=== PATIENT | male | born 1990 | race Caucasian/White ===

== ENCOUNTER 2024-07-23 11:27 | Inpatient (IN) | payer OTHER ==
[2024-07-23 12:02] VITALS: BMI 21.7
[2024-07-23] MEDS ORDERED: NALOXONE (NARCAN) HCL 4 MG/0.1 ML SPRAY NS PRN (12:02)
[2024-07-23] MEDS ORDERED: MAGNESIUM HYDROX 2400MG/30ML ORAL SUSPENSION 30 ML CUP PO PRN (12:02)
[2024-07-23] MEDS ORDERED: ACETAMINOPHEN 325 MG TABLET (FP) PO PRN (12:02)
[2024-07-23] MEDS ORDERED: ONDANSETRON *ODT* 4 MG TABLET SL PRN (12:02)
[2024-07-23] MEDS ORDERED: METHOCARBAMOL 500 MG TABLET PO PRN (12:02)
[2024-07-23] MEDS ORDERED: BENZONATATE 200 MG CAPSULE PO PRN (12:02)
[2024-07-23] MEDS ORDERED: IBUPROFEN 400 MG TABLET (FP) PO PRN (12:02)
[2024-07-23] MEDS ORDERED: POLYETHYLENE GLYCOL (HEALTHYLAX) 3350 17 GM PACKET PO PRN (12:02)
[2024-07-23] MEDS ORDERED: MAG HYDROX/AL HYDROX/SIMETH 30 ML UNIT-DOSE CUP PO PRN (12:02)
[2024-07-23] MEDS ORDERED: DICYCLOMINE HCL 10 MG CAPSULE PO PRN (12:02)
[2024-07-23] MEDS ORDERED: guaiFENesin 600 MG TABLET.ER (FP) PO PRN (12:02)
[2024-07-23] MEDS ORDERED: BENZOCAINE/MENTHOL (CHLORASEPTIC ) LOZENGE MM PRN (12:02)
[2024-07-23] MEDS ORDERED: LOPERAMIDE HCL 2 MG CAPSULE PO PRN (12:02)
[2024-07-23] MEDS ORDERED: BISMUTH SUBSALICYLATE 262 MG/15 ML BTL PO PRN (12:02)
[2024-07-23] MEDS ORDERED: hydrOXYzine PAMOATE 25 MG CAPSULE (FP) PO PRN (12:02)
[2024-07-23] MEDS ORDERED: methaDONE HCL 10 MG TABLET (FOR DETOX USE ONLY) ONE (12:38)
[2024-07-23] MEDS ORDERED: PRENATAL VITAMINS W/ FOLIC ACID TABLET (FP) PO ONE (12:39)
[2024-07-23] MEDS: methaDONE HCL 10 MG TABLET PO ONE (12:42)
[2024-07-23] MEDS: PRENATAL VITAMINS W/ FOLIC ACID TABLET (FP) PO SCH (12:42)
[2024-07-23] MEDS: cloNIDine HCL 0.1 MG TABLET PO SCH (13:11)
[2024-07-23] MEDS: MELATONIN 5 MG TABLETS PO SCH (22:06)
[2024-07-23] MEDS: THIAMINE 100 MG TABLET PO SCH (22:06)
[2024-07-23] MEDS: methaDONE HCL 10 MG TABLET PO PRN (22:08)
[2024-07-24] MEDS: IBUPROFEN 600 MG TABLET (FP) PO PRN (05:25)
[2024-07-24] MEDS: methaDONE 40 MG, methaDONE 10 MG PO ONE (09:25)
[2024-07-24 11:25] LABS: HEMATOCRIT 38.9 % (40.1-51.0); HEMOGLOBIN 12.5 g/dL (13.7-17.5); MCHC 32.1 g/dl (32.3-36.5); MEAN CELL VOLUME 93.3 fl (79.0-92.2); MEAN PLT VOLUME 10.3 fl (9.4-12.4); PLATELET COUNT 385 x10^3/uL (163-337); RDW 12.6 % (12.0-15.6)
[2024-07-24 11:39] LABS: POTASSIUM 3.9 mmol/L (3.5-5.1)
[2024-07-24 11:43] LABS: CALCIUM 9.2 mg/dL (8.5-10.1)
[2024-07-24 11:44] LABS: BLOOD UREA NITROGEN 10.7 mg/dL (7-18)
[2024-07-24 11:47] LABS: CREATININE 0.6 mg/dL (0.55-1.3)
[2024-07-24 11:48] LABS: BILIRUBIN,TOTAL 0.5 mg/dL (0.2-1); TOT PROT 7.7 g/dl (6.4-8.2)
[2024-07-24 13:12] VITALS: RESP 18
[2024-07-24 17:10] VITALS: BP 110/73; PULSE 70; TEMP 97.9
[2024-07-25] MEDS ORDERED: cloNIDine HCL 0.1 MG TABLET PO PRN
[2024-07-25] MEDS ORDERED: methaDONE 40 MG, methaDONE 20 MG PO ONE (10:00)
[2024-07-26] MEDS ORDERED: methaDONE 40 MG, methaDONE 30 MG PO ONE (10:00)
[2024-07-27] MEDS ORDERED: methaDONE HCL 40 MG DISPERSABLE TABLET PO ONE (10:00)
[2024-07-28] MEDS ORDERED: methaDONE 80 MG, methaDONE 10 MG PO ONE (10:00)
== END 2024-07-24 19:52 | disposition left against medical advice (07) | DRG 770 ==
LOC: YASAS 11:27 → Y6N 12:32
PROVIDERS: ADMIT Allergy & Immunology; ATTEND Allergy & Immunology
PROC: HZ2ZZZZ Detoxification Services for Substance Abuse Treatment (ICD-10-PCS; principal; 2024-07-23)
DX: F11.23 Opioid dependence with withdrawal (principal); F17.210 Nicotine dependence, cigarettes, uncomplicated; F19.282 Other psychoactive substance dependence with psychoactive substance-induced sleep disorder; R74.01 Elevation of levels of liver transaminase levels; Z56.0 Unemployment, unspecified; Z59.00 Homelessness unspecified
CPT/HCPCS: 36415; 80053; 80305; 80307; 85027; 86780; 93005; 93010